=== PATIENT | female | born 1990 | race Caucasian/White ===

== ENCOUNTER 2019-06-30 13:08 | Emergency (ER) | payer OTHER, SELFPAY ==
[2019-06-30 13:13] VITALS: BP 119/57; PULSE 64; RESP 16; TEMP 36.5; O2SAT 100
--- NOTE | 2019-06-30 13:53 | ED.URI ---
HPI - URI/Sore Throat General Chief Complaint: Upper Respiratory Infection Stated Complaint: COUGH/HARD TO SWALLOW Time Seen by Provider: 06/30/19 13:34 Source: patient Mode of arrival: ambulatory Limitations: no limitations History of Present Illness HPI Narrative: 28-year-old female presents for evaluation of symptoms that have been present for 5 days. She reports that initially started with a sore throat, cough, loss of voice. She reports 2 days ago, really started to return but is still very hoarse, however she developed worsening pain to the left side of her throat. She is used Robitussin for her symptoms. She has been exposed to her children with URI symptoms. She did not get a flu shot this season. She reports history of T&A. Denies smoking, vaping, marijuana use. Has been taking steroid Dosepak for 4 days for a dental issue, had cavity filled Related Data Home Medications Medication Instructions Recorded Confirmed methylprednisolone 06/30/19 Allergies Allergy/AdvReac Type Severity Reaction Status Date / Time amoxicillin Allergy Mild Rash Verified 06/30/19 13:20 Cephalosporins Allergy Mild Rash Verified 06/30/19 13:20 Penicillins Allergy Mild Rash Verified 06/30/19 13:20 hydrocodone AdvReac Intermediate Nausea and Verified 06/30/19 13:20 Vomiting erythromycin base AdvReac Mild Nausea and Verified 06/30/19 13:20 Vomiting Review of Systems Review of Systems: Narrative: CONSTITUTIONAL: Denies fever, chills, weight loss, or sweats. EYES: Denies visual changes, redness, or discharge. ENT: Reports rhinorrhea, left sore throat, hoarse voice. Denies congestion, otalgia. CARDIOVASCULAR: Denies chest pain, palpitations, or edema. RESPIRATORY: Denies dyspnea. Reports cough GASTROINTESTINAL: Denies abdominal pain, nausea, vomiting, or diarrhea. GENITOURINARY: Denies dysuria, hematuria, urinary frequency, malordous urine SKIN: Denies rash or itching. MUSCULOSKELETAL: Denies back pain, joint pain, myalgia, swelling NEUROLOGIC: Denies headache, numbness, or weakness. All systems reviewed & are unremarkable except as noted in HPI and below PMFSH Family History Family History Grandparent Hypertension Malignant neoplasm of prostate Family history of type 2 diabetes mellitus Other Family history of malignant neoplasm of brain Social History Social History Smoking status: Never smoker Alcohol intake: never Comments At the time of my signature, I agree with nursing past medical, surgical, social and family history. There is no relevant family history pertinent to the presenting complaint. Exam Narrative: Exam Narrative: GENERAL: No distress, well appearing, well nourished, alert and calm HEAD: Normocephalic, atraumatic. No sinus tenderness noted EYES: Pupils equal, round. Extraocular movements intact. Conjunctivae without redness or drainage. EARS: Tympanic membranes without erythema. TM landmarks intact with good light reflex. Ear canals without discharge. NOSE: Nares patent. Nasal turbinates noninflamed. No nasal discharge MOUTH: Mucous membranes moist. No lesions. No cyanosis. Dentition grossly normal. THROAT: Oropharynx with mild erythema. no exudates or lesions. Tonsils not enlarged. Uvula midline, no deviation. Swallows easily NECK: Supple. No abnormal swelling. No lymphadenopathy. RESPIRATORY: Airway patent. Chest clear to auscultation bilaterally. Breath sounds equal bilaterally. No retractions. CARDIOVASCULAR: Regular rate and rhythm. No murmurs, rubs, gallops, or clicks. Capillary refill <2 seconds. GASTROINTESTINAL: Soft, nontender, non-distended. Bowel sounds normoactive. No masses. No organomegaly. No CVA tenderness SKIN: Color normal. Warm and dry. No rashes. NEURO: Alert. Motor intact in all extremities. Muscle tone normal. Course Course Emergency Cours
== END 2019-06-30 14:10 | disposition home or self-care (01) ==
PROVIDERS: Emergency Provider Nurse Practitioner
DX: J04.0 Acute laryngitis (principal); B34.9 Viral infection, unspecified
CPT/HCPCS: 87081; 87880; 99213; G0463